=== PATIENT | female | born 1930 | race Caucasian/White ===

== ENCOUNTER 2017-06-02 12:34 | Emergency (ER) | payer MEDICARE, BC ==
[~2017-06-02] VITALS: Ht 160 cm; Wt 45.8 kg
[~2017-06-02 12:34] MED LIST: ASPI81TA31 PO; CILO100T PO; CITA20TA19 PO; CLON0.1T14 PO; ESOM40CA PO; ESTR0.3T26 PO; SUMA50TA PO; TEMA15CA5 PO
--- NOTE | 2017-06-02 13:01 | NUR ---
G-tube is in place (+able to aspirate gastric contents and able to auscultate when small amount of air was injected. Patient says the a "piece of topper" to keep the g-tube from "sliding inside" is broken.
--- NOTE | 2017-06-02 13:07 | NUR ---
Patient discharged to home in stable conditon. Written and verbal after care instructions given to patient. Patient verbalizes understanding of instructions. Patient says decided that she will see her gastroenterlogist tomorrow instead.
== END 2017-06-02 13:08 | disposition home or self-care (01) ==
LOC: ER 12:34
DX: K94.23 Gastrostomy malfunction (principal); K21.9 Gastro-esophageal reflux disease without esophagitis; Z79.82 Long term (current) use of aspirin
CPT/HCPCS: 99281; A4663

== ENCOUNTER 2018-01-17 11:12 | Emergency (ER) | payer MEDICARE, BC ==
[~2018-01-17] VITALS: Ht 157.5 cm; Wt 45.4 kg
[2018-01-17] MEDS ORDERED: ACETAMINOPHEN/CODEINE 120-12 MG PER 5 ML LIQUID UDC ONE (11:45)
[2018-01-17] MEDS ORDERED: ACETAMINOPHEN/CODEINE 120-12 MG PER 5 ML LIQUID UDC GT ONE (11:45)
--- NOTE | 2018-01-17 11:58 | NUR ---
PT IS IN ROOM #1B. DR MONTES EVALUATED THE PT.
--- NOTE | 2018-01-17 12:23 | NUR ---
PT WAS D/C TO HOME. D/C INSTRUCTIONS GIVEN TO THE PT.
[2018-01-17 12:30] VITALS: BP 141/87
== END 2018-01-17 12:49 | disposition home or self-care (01) ==
LOC: ER 11:12
DX: S62.102A Fracture of unspecified carpal bone, left wrist, initial encounter for closed fracture (principal); K21.9 Gastro-esophageal reflux disease without esophagitis; G89.29 Other chronic pain; I25.10 Atherosclerotic heart disease of native coronary artery without angina pectoris; Z79.82 Long term (current) use of aspirin; Z88.8 Allergy status to other drugs, medicaments and biological substances; Z95.1 Presence of aortocoronary bypass graft; W18.30XA Fall on same level, unspecified, initial encounter; Y93.89 Activity, other specified; Y92.89 Other specified places as the place of occurrence of the external cause; Y99.8 Other external cause status
CPT/HCPCS: 73110; A4663